=== PATIENT | female | born 1970 | race Caucasian/White ===

== ENCOUNTER → 2019-05-30 11:21 | Outpatient (CLI) | payer MEDICARE, MEDICAID ==
[2019-05-31 10:10] LABS: IMMUNOGLOBULIN A 270 mg/dL (87-352); IMMUNOGLOBULIN G 778 mg/dL (700-1600); IMMUNOGLOBULIN M 51 mg/dL (26-217)
== END | disposition home or self-care (01) ==
LOC: D.RAD 05-16 15:30 → D.LAB 05-16 15:45 → D.RT 05-16 16:00 → D.RAD 11:21
PROVIDERS: ATTEND Internal Medicine Pulmonary Disease
DX: J44.9 Chronic obstructive pulmonary disease, unspecified (principal)

== ENCOUNTER → 2019-07-10 08:11 | Outpatient (CLI) | payer MEDICARE, MEDICAID | END | disposition home or self-care (01) | LOC: D.RT 08:00 | PROVIDERS: ATTEND Internal Medicine Pulmonary Disease | DX: J44.9 Chronic obstructive pulmonary disease, unspecified (principal) ==

== ENCOUNTER → 2019-09-05 12:06 | Outpatient (CLI) | payer MEDICARE, MEDICAID | END | disposition home or self-care (01) | LOC: D.RAD 12:06 | PROVIDERS: ATTEND Internal Medicine Gastroenterology | DX: R13.12 Dysphagia, oropharyngeal phase (principal); K21.9 Gastro-esophageal reflux disease without esophagitis; R10.11 Right upper quadrant pain; R11.0 Nausea ==

== ENCOUNTER 2020-12-12 06:10 | Day surgery (SDC) | payer MEDICARE, MEDICAID ==
[~2020-12-12] VITALS: Ht 170.2 cm; Wt 97.3 kg
[2020-12-12 06:26] LABS: BASOPHILS 0.1 % (0-2); EOSINOPHILS 0 % (0-7); HEMATOCRIT 40.9 % (36.0-48.0); HEMOGLOBIN 13.9 g/dL (12-16); LYMPHOCYTES 22.5 % (15-50); MCH 33.4 pg (26.0-34.0); MCHC 34.1 g/dL (31.0-37.0); MCV 97.9 fL (80.0-100.0); MEAN PLATELET VOLUME 8.6 fL (7.4-10.4); MONOCYTES 6.7 % (2-11); NEUTROPHILS 70.7 % (40-80); PLATELET COUNT 254 10x3/uL (130-400); RBC 4.18 10x6/uL (4.00-5.40); RDW 13.6 % (11.5-14.5); WBC 11.4 10x3/uL (4.8-10.8)
[2020-12-12] MEDS ORDERED: ATARAX 25 MG TA25 MG (06:52)
[2020-12-12] MEDS ORDERED: LYRICA150 MG (06:52)
[2020-12-12] MEDS ORDERED: OMEPRAZOLE DR 20 MG (06:53)
[2020-12-12] MEDS ORDERED: LITHIUM CARBON150 MG (06:53)
[2020-12-12] MEDS ORDERED: LISINOPRIL5 MG (06:53)
[2020-12-12] MEDS ORDERED: LAMICTAL200 M1 (06:53)
[2020-12-12] MEDS ORDERED: TOPAMAX SPRINKL (06:54)
[2020-12-12] MEDS ORDERED: [UNRECOGNIZED DRUG - OTHER] (06:54)
[2020-12-12] MEDS ORDERED: AMOXICILLIN500 M1 (06:54)
[2020-12-12] MEDS ORDERED: LIPITOR20 MG (06:54)
[2020-12-12] MEDS ORDERED: MUCINEX DM ER1 EAC1 (06:55)
[2020-12-12] MEDS ORDERED: SYMBICORT 16010.2 GM (06:55)
[2020-12-12] MEDS ORDERED: MINIPRESS1 MG (06:55)
[2020-12-12] MEDS ORDERED: IPRAT-ALBUT 0.5-3 ML (06:55)
[2020-12-12] MEDS ORDERED: VIBRAMYCIN 100100 MG (06:56)
[2020-12-12] MEDS ORDERED: NOVOLIN 70/30 110 ML (06:57)
[2020-12-12 07:02] VITALS: Ht 170.2 cm; Wt 97.3 kg
--- NOTE | 2020-12-12 07:22 | NUR ---
PATIENT WITH POSITIVE PSYCH SCREEN, DENIES BEING ACTIVELY SUICIDAL. STATES SHE HAS RECENTLY BEEN RECEIVING PSYCH CARE AND IS BETTER. DENIES CONSULT FOR PSYCH
[2020-12-12 07:35] LABS: ANION GAP 12.9 mmol/L (8-16); CALCIUM 9.6 mg/dL (8.5-10.1); CARBON DIOXIDE 26.2 mmol/L (21.0-32.0); CREATININE - SERUM 0.9 mg/dL (0.6-1.3); POTASSIUM - SERUM 4.1 mmol/L (3.5-5.1)
[2020-12-12 07:43] LABS: APTT 30.9 SECONDS (22.8-39.4); INR 1.07 (0.85-1.17); PROTIME 12.9 SECONDS (11.6-15.0)
--- NOTE | 2020-12-12 09:45 | NUR ---
0930 IV REMOVED W CATH INTACT. DENIES PAIN OR ANY PROBLEMS. DISCHARGED VIA WC WITH ADULT PATHOLOGY LABORATORY AIDE
--- NOTE | 2020-12-13 09:09 | OP ---
PATIENT NAME: NAVEED APPLE MEDICAL RECORD: [id number] :68 LOCATION:[facility] ADMISSION DATE: SURGEON: ANMOL SPEARS MD DATE OF OPERATION: 12/12/2020 PROCEDURE: Upper endoscopy. PREOPERATIVE DIAGNOSES: Dysphagia, abdominal pain. MEDICATION: Propofol 200 mg per anesthesia. DESCRIPTION OF PROCEDURE: The patient was made comfortable in the left lateral position. The endoscope was advanced through the mouth and advanced to the second part of the duodenum. The proximal, mid, and mid esophagus were normal. In the distal esophagus was a mild esophageal stricture. This was dilated with an 18, 19, 20 mm balloon. In the gastric body was mild erythema consistent with gastritis. Random gastric biopsies were taken. The entire examined duodenum was normal. Small bowel biopsies were taken. The patient tolerated the procedure well. There were no immediate complications. FINAL IMPRESSION: Mild esophageal stricture dilated as noted above. Gastritis. Duodenum normal. PLAN: Check histology results. Continue proton pump inhibitor. Return to GI office. TRANSINT:[id number] Voice Confirmation ID: [id number] DOCUMENT ID: [id number] ANMOL SPEARS MD at [id number] CC: [id number] DICTATION DATE: 12/12/20 0849 HEALTH ADMINISTRATION TEACHER: 12/12/20 0915 [facility] 12/12/20 [id number] [place] [address]
== END 2020-12-12 09:25 | disposition home or self-care (01) ==
LOC: D.OPS 06:10
PROVIDERS: ATTEND Internal Medicine Gastroenterology
DX: R13.10 Dysphagia, unspecified (principal); R10.9 Unspecified abdominal pain; K22.2 Esophageal obstruction; K29.70 Gastritis, unspecified, without bleeding; K21.9 Gastro-esophageal reflux disease without esophagitis; R11.0 Nausea; E11.9 Type 2 diabetes mellitus without complications; K76.0 Fatty (change of) liver, not elsewhere classified

== ENCOUNTER → 2020-12-16 08:31 | Outpatient (CLI) | payer MEDICARE, MEDICAID ==
[2020-12-12 07:02] VITALS: BMI 33.6
[~2020-12-16 08:31] MED LIST: AMOXICILLIN500 M1; ATARAX 25 MG TA25 MG; IPRAT-ALBUT 0.5-3 ML; LAMICTAL200 M1; LIPITOR20 MG; LISINOPRIL5 MG; LITHIUM CARBON150 MG; LYRICA150 MG; MINIPRESS1 MG; MUCINEX DM ER1 EAC1; NOVOLIN 70/30 110 ML; OMEPRAZOLE DR 20 MG; SYMBICORT 16010.2 GM; TOPAMAX SPRINKL; VIBRAMYCIN 100100 MG; [UNRECOGNIZED DRUG - OTHER]
== END | disposition home or self-care (01) ==
LOC: D.RT 08:31
PROVIDERS: ATTEND Internal Medicine Pulmonary Disease
DX: J44.9 Chronic obstructive pulmonary disease, unspecified (principal)